=== PATIENT | female | born 1930 | race Caucasian/White ===

== ENCOUNTER 2016-10-04 12:25 | Inpatient (IN) | payer MEDICARE, OTHER, MEDICAID ==
[2016-10-04] VITALS (8 sets, daily range): BP systolic 120–200; BP diastolic 48–103
[~2016-10-04] VITALS: Ht 167.6 cm; Wt 60.4 kg
--- NOTE | ~2016-10-04 | PR ---
[place], [place] PROGRESS NOTE NAME: LANETTE BOBBY UNIT #: [id number] ROOM: 508 DOCTOR: YAMILEX NGUYEN MD BIRTHDATE: [birth year] DOS: 10/07/2016 SUBJECTIVE: The patient was seen at her bedside today for followup of lightheadedness and bradycardia. I reviewed her monitor strips before seeing her. She has not had any significant bradycardia on the monitor. Vital signs appear stable. She tells me that she does feel considerably better since she was hospitalized. She is being treated for an upper respiratory infection. PHYSICAL EXAMINATION: VITAL SIGNS: Her pulse is 78 and regular, blood pressure is 117/50. She is afebrile. She weighs 60.4 kilograms. NECK: Supple. She has no jugular distention. Carotids are full without bruits. She has no neck or supraclavicular masses. LUNGS: Respirations are unlabored. Her chest is clear. HEART: Regular rhythm. She has a fourth heart sound. ABDOMEN: Benign. EXTREMITIES: Showed no edema. IMPRESSION: 1. Paroxysmal atrial fibrillation. 2. Essential hypertension. 3. Admission with malaise and possible bradycardia. I think at least some of the bradycardia that was reported prior to her admission was spurious and caused by an inaccurate reading on a pulse oximeter. 4. Probable upper respiratory infection. PLAN: I would continue her current management with beta blockers. We will withhold digoxin. She is being anticoagulated with warfarin. I think that physical therapy should be contacted to ask them to help with the patient ambulation. From my perspective, she probably could be discharged to home in the very near future. I thank the hospitalist group for asking my advice regarding her care. [place], [place] PROGRESS NOTE NAME: LANETTE BOBBY UNIT #: [id number] ROOM: 508 DOCTOR: YAMILEX NGUYEN MD BIRTHDATE: [birth year] YAMILEX NGUYEN MD CM:PNTRANS [id number] YAMILEX NGUYEN MD 10/08/16928 interface
--- NOTE | ~2016-10-04 | PR ---
[place], [place] [id number] UNIT #: [id number] ROOM: 508 DOCTOR: YAMILEX NGUYEN MD BIRTHDATE: [birth year] DOS: 10/08/2016 SUBJECTIVE: The patient was seen at her bedside today, 10/08/2016. She is feeling considerably better. She still has a cough, but states that it is minimal and minimally productive. She denies any fevers or chills. She has not had any lightheadedness. She has not, however, ambulated very much. PHYSICAL EXAMINATION: VITAL SIGNS: Today, her pulse is 74 and irregularly irregular, blood pressure is 112/60. She is afebrile. She weighs 60.4 kilograms with a body mass index of 21.5. NECK: Supple. She has no jugular distention. Carotids are full without bruits. LUNGS: Respirations are unlabored. She does have a few crackles at the bases. HEART: Irregularly irregular rhythm. ABDOMEN: Soft and normoactive. EXTREMITIES: Showed no edema. LABORATORY DATA: She seems to be doing better from my standpoint. I would like to see her out of bed. A physical therapy evaluation would probably be beneficial to determine if she is strong enough to function independently at home. PLAN: Otherwise, we will continue her current medications. We will continue to adjust her warfarin to maintain an INR between 2 and 3. We will continue to manage her with beta blockers for her atrial fibrillation. Digoxin remains on hold. I thank the hospitalist group for asking our advice regarding her care. YAMILEX NGUYEN MD CM:PNTRANS [id number] YAMILEX NGUYEN MD 10/08/16 2251 interface
--- NOTE | ~2016-10-04 | PR ---
[place], [place] PROGRESS NOTE NAME: LANETTE BOBBY [facility] #: [id number] UNIT #: [id number] ROOM: 508 DOCTOR: YAMILEX NGUYEN MD BIRTHDATE: [birth year] DOS: 10/06/2016 SUBJECTIVE: The patient was seen at her bedside today, 10/06/2016, for followup of her episode of malaise and possible bradycardia. She is an 86-year-old woman who has a history of paroxysmal atrial fibrillation and coronary artery disease with atypical chest pain some of which is musculoskeletal in origin. On the day of admission, she was feeling poorly. She checked her heart rate with a pulse oximeter and the reading was 33, so she became concerned. A nurse at the [facility] rechecked her heart rate and felt that it was in the 40s, so she came to the Emergency Room. Since she has been in the hospital, she has had no significant bradycardia, in fact this morning, she became somewhat lightheaded and her pulse was fast at that time. Metoprolol had been stopped on admission, but now has been resumed and her pulse throughout the day today has been well controlled, but not bradycardic. OBJECTIVE: GENERAL: She is a slender white female who is awake, alert and oriented. VITAL SIGNS: Pulse is 80 and regular, blood pressure is 113/69. She is afebrile. NECK: Supple. She has no jugular distention. Carotids are full without bruits. LUNGS: Respirations are unlabored. Her chest is clear to auscultation and percussion. HEART: Has a regular rhythm with an S4 gallop, but no S3. The PMI is not displaced. ABDOMEN: Benign. EXTREMITIES: Showed no edema. IMPRESSION: 1. Malaise probably due to a viral syndrome. 2. History of paroxysmal atrial fibrillation. 3. Atherosclerotic heart disease. 4. Atypical chest pain, some of which is musculoskeletal in origin. 5. Chronic renal insufficiency. 6. Bradycardia, which may have been spurious. PLAN: Digoxin will be placed on indefinite hold. We will continue her metoprolol and continue to monitor her while she is in the hospital. She is being treated for bronchitis. I think that as her infectious process improves, her other symptoms will improve as well. We will continue to follow her with her other physicians in the hospital and we thank the hospitalist group for asking our advice regarding her care. [place], [place] PROGRESS NOTE NAME: LANETTE BOBBY UNIT #: [id number] ROOM: 508 DOCTOR: YAMILEX NGUYEN MD BIRTHDATE: [birth year] YAMILEX NGUYEN MD CM:JIM 06 [id number] YAMILEX NGUYEN MD 10/07/16 180 interface
[~2016-10-04 12:25] MED LIST: ASPIRIN81 M1 PO; ATIVAN0.5 MG PO; ATORVASTATIN CA40 M1 PO; AUGMENTIN 875-875 MG PO; AZITHROMYCIN500 M2 PO; B12100 MC1 PO; CELEXA20 MG PO; CELEXA40 MG PO; CLOPIDOGREL75 MG PO; COUMADIN3 M1 PO; COUMADIN4 M2 PO; COUMADIN6 M2 PO; Coumadin5 MG PO; DOXYCYCLINE100 MG PO; DUONEB 3 MG/3 ML3 M1 NEB; EFFEXOR XR75 M1 PO; FERROUS SULFAT325 MG PO; FLOVENT HFA10.6 GM IH; FLOVENT HFA12 GM INH; FLUTICASON0.05 MG/A2 NAS; JANTOVEN1 MG PO; JANTOVEN2 MG PO; JANTOVEN4 M1 PO; JANTOVEN5 MG PO; LANOXIN0.125 MG PO; LIPITOR40 MG PO; LISINOPRIL2.5 MG PO; LOPRESSOR25 MG PO; Lovenox60 MG/0.6 SC; MEDROL DOSEPAK4 MG PO; METOPROLOL SUCC25 M2 PO; METOPROLOL25 MG PO; MIDODRINE HCL2.5 MG PO; MIDODRINE HCL5 M1 PO; MIRALAX POWDER17 G1 PO; MUCINEX ER600 MG PO; PLAVIX75 M1 PO; PLAVIX75 MG PO; PRAVACHOL20 MG PO; PREDNISONE10 MG PO; PRESERVISION1 SGL PO; PROPAFENONE HC150 MG PO; Proamatine PO; QVAR0.08 MG/AC INH; SERTRALINE50 MG PO; TOPROL XL25 MG PO; TYLENOL325 M1 PO; TYLENOL325 M2 PO; VITAMIN D31000 IU PO; VITAMIN D50000 I2 PO; ZESTRIL,PRINIVI20 MG PO; ZITHROMAX250 MG PO
[2016-10-04] MEDS ORDERED: AMOX/CLAV POT 81 TAB PO (12:59)
[2016-10-04 13:56] LABS: BASO % 0.2 % (0.0-1.0); EOS # 0.2 10*3/uL (0.0-0.4); EOS % 1.4 % (1.0-4.0); HEMATOCRIT 32.6 % (37.0-47.0); HEMOGLOBIN 10.6 g/dl (12.0-16.0); IG # 0.1 10*3/uL (0.0-0.1); MEAN CELL VOLUME 98.2 fl (81.0-99.0); MEAN CORPUSCULAR HGB 31.9 pg (27.0-31.0); MEAN CORPUSCULAR HGB CONC 32.5 g/dl (33.0-37.0); MEAN PLATELET VOLUME 9.9 fl (9.6-12.3); MONO # 1.2 10*3/uL (0.1-1.0); MONO % 10.1 % (3.0-9.0); NEUT # 8.5 10*3/uL (2.3-7.9); NEUT % 70.6 % (47.0-73.0); PLATELET COUNT AUTOMATED 232 10*3/uL (130-400); RED BLOOD COUNT 3.32 10*6/uL (4.10-5.10)
[2016-10-04 14:07] LABS: INTERNATIONAL NORM RATIO 1.4 (2.0-3.5); PROTHROMBIN TIME 15.1 SECONDS (9.0-12.4)
[2016-10-04 14:27] LABS: ALBUMIN 3.1 gm/dl (3.1-4.5); BILIRUBIN, TOTAL 0.4 mg/dl (0.2-1.0); POTASSIUM 4.2 mmol/L (3.5-5.1); TOTAL PROTEIN 6.8 gm/dL (6.4-8.2)
[2016-10-04 14:28] LABS: MAGNESIUM 2.1 mg/dL (1.5-2.1)
[2016-10-04 23:39] LABS: BILIRUBIN NEGATIVE (NEGATIVE); BLOOD NEGATIVE (NEGATIVE); CLARITY CLEAR (CLEAR); COLOR YELLOW (YELLOW); GLUCOSE NEGATIVE (NEGATIVE); KETONE NEGATIVE (NEGATIVE); LEUKO ESTERASE 1+ (NEGATIVE); NITRITE NEGATIVE (NEGATIVE); PROTEIN NEGATIVE (NEGATIVE); SPECIFIC GRAVITY <= 1.005 (1.005-1.030); UROBILINOGEN 0.2 E.U./dl (0.2-1.0)
[2016-10-04 23:46] LABS: BACTERIA TRACE; EPITHELIAL CELLS 0-2; URINE REFLEX COMMENT YES (NO)
[2016-10-05] VITALS: BP 115/40; BP 116/40
[2016-10-05 01:08] LABS: CPK 26 U/L (26-192)
[2016-10-05 01:10] LABS: CKMB < 0.5 ng/ml (0.5-3.6)
[2016-10-05 06:19] LABS: CKMB < 0.5 ng/ml (0.5-3.6); CPK 26 U/L (26-192)
[2016-10-05 06:21] LABS: BASO % 0.4 % (0.0-1.0); EOS # 0.2 10*3/uL (0.0-0.4); EOS % 1.7 % (1.0-4.0); HEMATOCRIT 33.2 % (37.0-47.0); HEMOGLOBIN 10.8 g/dl (12.0-16.0); IG # 0.1 10*3/uL (0.0-0.1); LYMPH # 2.2 10*3/uL (1.3-4.4); LYMPH % 22.2 % (27.0-41.0); MEAN CELL VOLUME 97.6 fl (81.0-99.0); MEAN CORPUSCULAR HGB 31.8 pg (27.0-31.0); MEAN CORPUSCULAR HGB CONC 32.5 g/dl (33.0-37.0); MEAN PLATELET VOLUME 9.9 fl (9.6-12.3); MONO # 1.1 10*3/uL (0.1-1.0); MONO % 11.2 % (3.0-9.0); NEUT # 6.2 10*3/uL (2.3-7.9); NEUT % 63.9 % (47.0-73.0); PLATELET COUNT AUTOMATED 232 10*3/uL (130-400); RED CELL DISTRI WIDTH 13.9 % (0-14.5); WHITE BLOOD COUNT 9.8 10*3/uL (4.8-10.8)
[2016-10-05 06:42] LABS: BILIRUBIN, TOTAL 0.6 mg/dl (0.2-1.0); POTASSIUM 4.2 mmol/L (3.5-5.1); TOTAL PROTEIN 6.4 gm/dL (6.4-8.2)
[2016-10-05 06:50] LABS: INTERNATIONAL NORM RATIO 1.2 (2.0-3.5); PROTHROMBIN TIME 13.1 SECONDS (9.0-12.4)
[2016-10-05 08:00] VITALS: BP 130/70
[2016-10-05 12:00] VITALS: BP 136/60
[2016-10-05 16:00] VITALS: BP 156/51
[2016-10-05 20:00] VITALS: BP 105/67
[2016-10-06] VITALS: BP 116/57
[2016-10-06 06:40] LABS: BASO % 0.5 % (0.0-1.0); EOS # 0.1 10*3/uL (0.0-0.4); EOS % 1.6 % (1.0-4.0); HEMATOCRIT 37.9 % (37.0-47.0); IG # 0.1 10*3/uL (0.0-0.1); LYMPH # 2.3 10*3/uL (1.3-4.4); LYMPH % 28.4 % (27.0-41.0); MEAN CELL VOLUME 97.4 fl (81.0-99.0); MEAN CORPUSCULAR HGB 30.8 pg (27.0-31.0); MEAN CORPUSCULAR HGB CONC 31.7 g/dl (33.0-37.0); MEAN PLATELET VOLUME 10.1 fl (9.6-12.3); MONO % 12.6 % (3.0-9.0); NEUT # 4.6 10*3/uL (2.3-7.9); NEUT % 56.3 % (47.0-73.0); PLATELET COUNT AUTOMATED 257 10*3/uL (130-400); RED BLOOD COUNT 3.89 10*6/uL (4.10-5.10); RED CELL DISTRI WIDTH 13.9 % (0-14.5); WHITE BLOOD COUNT 8.2 10*3/uL (4.8-10.8)
[2016-10-06 08:00] VITALS: BP 109/50
[2016-10-06 12:20] LABS: INTERNATIONAL NORM RATIO 1.1 (2.0-3.5); PROTHROMBIN TIME 12.2 SECONDS (9.0-12.4)
[2016-10-06 16:00] VITALS: BP 113/69
[2016-10-06 20:00] VITALS: BP 121/63
[2016-10-07] VITALS: BP 116/68
[2016-10-07 05:47] LABS: POTASSIUM 3.9 mmol/L (3.5-5.1)
[2016-10-07 06:29] LABS: INTERNATIONAL NORM RATIO 1.1 (2.0-3.5); PROTHROMBIN TIME 12.1 SECONDS (9.0-12.4)
[2016-10-07 08:00] VITALS: BP 104/52
[2016-10-07 12:00] VITALS: BP 117/50
[2016-10-07 16:00] VITALS: BP 129/60
[2016-10-07 20:00] VITALS: BP 124/66
[2016-10-08] VITALS: BP 127/68
[2016-10-08 04:00] VITALS: BP 110/48
[2016-10-08 06:08] LABS: POTASSIUM 4.6 mmol/L (3.5-5.1)
[2016-10-08 06:22] LABS: INTERNATIONAL NORM RATIO 1.5 (2.0-3.5); PROTHROMBIN TIME 15.7 SECONDS (9.0-12.4)
[2016-10-08 08:00] VITALS: BP 142/80
[2016-10-08 12:00] VITALS: BP 112/60
[2016-10-08] MEDS ORDERED: COUMADIN6 M2 PO (12:57)
[2016-10-08] MEDS ORDERED: LEVAQUIN750 M1 PO (12:58)
[2016-10-08 16:00] VITALS: BP 124/91
[2016-10-12] MEDS ORDERED: B12,B-12,B 12500 MC1 PO (13:27)
[2016-10-12] MEDS ORDERED: CHLORASEPTIC PO (13:27)
[2016-10-12] MEDS ORDERED: COUMADIN6 M2 PO (13:27)
[2016-10-12] MEDS ORDERED: FLUDROCORTISON0.1 MG PO (13:27)
[2016-11-29] MEDS ORDERED: COUMADIN4 M2 PO (18:40)
[2016-11-29] MEDS ORDERED: B-12500 MC1 PO (18:41)
[2016-11-29] MEDS ORDERED: FLONASE ALLERG9.9 ML NAS (18:41)
[2016-11-29] MEDS ORDERED: FLUDROCORTISON0.1 MG PO (18:41)
[2016-11-29] MEDS ORDERED: FLOVENT HFA12 GM INH (18:41)
[2016-11-29] MEDS ORDERED: IMODIUM A-D2 M2 PO (18:42)
[2016-11-29] MEDS ORDERED: ONE DAILY ESSE1 EACH PO (18:43)
[2016-11-29] MEDS ORDERED: MILK OF MA400 MG/5 M PO (18:43)
[2016-11-29] MEDS ORDERED: METOPROLOL SUCC50 M1 PO (18:43)
[2016-11-29] MEDS ORDERED: Ranitidine Hyd150 MG PO (18:44)
[2016-11-29] MEDS ORDERED: REMERON15 M2 PO (18:44)
[2016-11-29] MEDS ORDERED: PLAVIX75 M1 PO (18:44)
[2016-11-29] MEDS ORDERED: PRESERVISION A1 EACH PO (18:44)
[2016-11-29] MEDS ORDERED: TYLENOL325 M2 PO (18:45)
[2016-11-29] MEDS ORDERED: VITAMIN D31000 IU PO (18:45)
[2016-11-29] MEDS ORDERED: ZOFRAN4 MG PO (18:46)
[2016-12-04] MEDS ORDERED: PREDNISONE10 MG PO (10:40)
[2016-12-04] MEDS ORDERED: FUROSEMIDE40 MG PO (10:40)
[2016-12-04] MEDS ORDERED: LEVOFLOXACIN500 MG PO (10:40)
[2016-12-04] MEDS ORDERED: MUCINEX ER600 MG PO (10:41)
[2016-12-07] MEDS ORDERED: GUAIFENESIN600 MG PO (17:49)
[2016-12-12] MEDS ORDERED: FUROSEMIDE40 MG PO (14:40)
[2016-12-12] MEDS ORDERED: COUMADIN5 M2 PO (14:40)
[2016-12-12] MEDS ORDERED: K-TAB ER8 MEQ PO (14:40)
[2016-12-27] MEDS ORDERED: COUMADIN3 M1 PO (17:59)
[2016-12-27] MEDS ORDERED: HYDROCORTISONE30 G2 T (18:00)
== END 2016-10-08 17:45 | disposition home or self-care (01) | DRG 305 ==
LOC: ED 12:25 → 5E 15:57
PROVIDERS: Internal Medicine; Registered Nurse; Student in an Organized Health Care Education/Training Program
DX: I16.1 Hypertensive emergency (principal); N18.3 Chronic kidney disease, stage 3 (moderate); R00.1 Bradycardia, unspecified; I12.9 Hypertensive chronic kidney disease with stage 1 through stage 4 chronic kidney disease, or unspecified chronic kidney disease; I48.0 Paroxysmal atrial fibrillation; J06.9 Acute upper respiratory infection, unspecified; B34.9 Viral infection, unspecified; R07.89 Other chest pain; E78.5 Hyperlipidemia, unspecified; I25.10 Atherosclerotic heart disease of native coronary artery without angina pectoris; D64.9 Anemia, unspecified; I25.2 Old myocardial infarction; Z90.710 Acquired absence of both cervix and uterus; Z90.49 Acquired absence of other specified parts of digestive tract; Z98.890 Other specified postprocedural states; Z82.49 Family history of ischemic heart disease and other diseases of the circulatory system; Z88.2 Allergy status to sulfonamides; Z88.1 Allergy status to other antibiotic agents; Z79.2 Long term (current) use of antibiotics; Z79.899 Other long term (current) drug therapy; Z79.01 Long term (current) use of anticoagulants

== ENCOUNTER → 2017-01-14 | Outpatient (CLI) | payer MEDICARE, OTHER, MEDICAID ==
[~2017-01-14] MED LIST changes: +AMOX/CLAV POT 81 TAB PO; +B-12500 MC1 PO; +B12,B-12,B 12500 MC1 PO; +CHLORASEPTIC PO; +COUMADIN5 M2 PO; +FLONASE ALLERG9.9 ML NAS; +FLUDROCORTISON0.1 MG PO; +FUROSEMIDE40 MG PO; +GUAIFENESIN600 MG PO; +HYDROCORTISONE30 G2 T; +IMODIUM A-D2 M2 PO; +K-TAB ER8 MEQ PO; +LEVAQUIN750 M1 PO; +LEVOFLOXACIN500 MG PO; +METOPROLOL SUCC50 M1 PO; +MILK OF MA400 MG/5 M PO; +ONE DAILY ESSE1 EACH PO; +PRESERVISION A1 EACH PO; +REMERON15 M2 PO; +Ranitidine Hyd150 MG PO; +ZOFRAN4 MG PO
== END | disposition home or self-care (01) ==
LOC: CT 10:11
DX: N26.1 Atrophy of kidney (terminal) (principal); I51.7 Cardiomegaly; R18.8 Other ascites; K86.89 Other specified diseases of pancreas; M47.896 Other spondylosis, lumbar region; N18.3 Chronic kidney disease, stage 3 (moderate); I35.9 Nonrheumatic aortic valve disorder, unspecified; Z90.49 Acquired absence of other specified parts of digestive tract